=== PATIENT | male | born 1980 | race Hispanic/Latino ===

== ENCOUNTER 2019-05-03 15:10 | Emergency (ER) | payer OTHER ==
[~2019-05-03] VITALS: Ht 172.7 cm; Wt 90.0 kg
[~2019-05-03 15:10] MED LIST: CEPHALEXIN500 M1 PO; CEPHALEXIN500 MG PO; DOXYCYCL HYC100 MG PO; NO HOME MEDS; ULTRAM50 M1 PO
[2019-05-03 18:52] VITALS: BP 149/83
== END 2019-05-03 18:58 | disposition home or self-care (01) | DRG 103 ==
LOC: ED 15:10
DX: F07.81 Postconcussional syndrome (principal); M54.5 Low back pain; M54.2 Cervicalgia; M25.552 Pain in left hip; V59.50XA Passenger in pick-up truck or van injured in collision with unspecified motor vehicles in traffic accident, initial encounter

== ENCOUNTER 2020-03-16 20:18 | Emergency (ER) | payer OTHER ==
[~2020-03-16] VITALS: Ht 172.7 cm; Wt 81.0 kg
[2020-03-16] MEDS ORDERED: IBUPROFEN600 MG PO (23:26)
[2020-03-16] MEDS ORDERED: ORPHENADRINE100 MG PO (23:26)
[2020-03-16 23:30] VITALS: BP 144/75
== END 2020-03-16 23:33 | disposition home or self-care (01) | DRG 914 ==
LOC: ED 20:18
DX: S39.82XA Other specified injuries of lower back, initial encounter (principal); M79.18 Myalgia, other site; V49.50XA Passenger injured in collision with unspecified motor vehicles in traffic accident, initial encounter